=== PATIENT | male | born 1955 | race Caucasian/White ===

== ENCOUNTER 2019-03-21 12:18 | Inpatient (IN) | payer OTHER ==
[~2019-03-21] VITALS: Ht 190.5 cm; Wt 132.9 kg
[~2019-03-21 12:18] MED LIST: ARTICHOKE PO; ASPIR 8181 MG PO; ASPIRIN81 M2 PO; CENTRUM SILVER1 EAC2 PO; FUROSEMIDE 20 M20 MG PO; HYDROXYZINE HCL25 M2 PO; IBUPROFEN 200200 M1 PO; LISINOPRIL20 MG PO; LISINOPRIL40 MG PO; MOBIC15 MG PO; NORCO 5-325 TA1 EACH PO; OMEPRAZOLE 20 M20 MG PO; OMEPRAZOLE40 MG PO; POTASSIUM20; PRIMROSE PO; TORADOL 10 MG T10 MG PO; ULTRAM 50MG TAB50 MG PO; UNICOMPLEX M TA1 TA1 PO; [UNRECOGNIZED DRUG - OTHER] PO
[2019-03-21] MEDS ORDERED: NORVASC5 MG PO (12:39)
[2019-03-21] MEDS ORDERED: PROZAC10 MG PO (12:40)
[2019-03-21] MEDS ORDERED: PAXIL10 MG PO (12:40)
[2019-03-21 13:15] LABS: HEMOGLOBIN 14.7 gm/dL (14.0-18.0); MCHC 33.1 g/dL (28.0-37.0)
[2019-03-21 13:17] LABS: HEMATOCRIT 44.5 % (42.0-52.0); MCH 28.7 pg (26.0-34.0); MCV 86.6 fL (80.0-100.0); MPV 8.6 fl. (7.2-11.1); NUCLEATED RBCS 0 /100WBC; PLATELET COUNT* 248 thou/uL (150-400); RBC 5.14 mil/uL (4.50-6.00); RDW-CV 13.7 % (10.5-14.5); WBC 11.4 thou/uL (4.0-11.0)
[2019-03-21 13:25] LABS: ANION GAP 9 mmol/L (7-16); APTT 25.4 Seconds (25.0-31.3); BUN 13 mg/dL (7-18); CALCIUM 8.8 mg/dL (8.5-10.1); CHLORIDE 105 mmol/L (98-107); CO2 27 mmol/L (21-32); CREATININE 0.9 mg/dL (0.6-1.3); GLUCOSE 112 mg/dL (70-99); POTASSIUM 3.6 mmol/L (3.5-5.1); PROTIME 10.2 Seconds (9.20-11.50); SODIUM 141 mmol/L (136-145)
[2019-03-21 13:38] LABS: ALKALINE PHOSPHATASE 116 U/L (46-116); NT-PRO BRAIN NAT PEPTIDE 80 pg/mL (<300); SGOT 26 U/L (15-37); SGPT 35 U/L (30-65); TOTAL BILIRUBIN 0.4 mg/dL (<0.1-1.0); TOTAL PROTEIN 7.5 g/dL (6.4-8.2); TROPONIN-I LEVEL <0.06 ng/mL (<0.06)
[2019-03-21 13:59] LABS: ABSOLUTE LYMPHOCYTES 0.6 thou/uL (0.8-5.3); ABSOLUTE MONOCYTES 0.2 thou/uL (0.0-1.2); ABSOLUTE NEUTROPHILS 10.6 thou/uL (1.6-8.1); PLATELET ESTIMATE ADEQUATE
--- NOTE | 2019-03-21 15:04 | EKG ---
[place] [address] ELECTROCARDIOGRAM REPORT Name: LUCY CARDONA Room: [place] [address] ADM IN .R.#: [id number] Admission: 03/21/19 Attend Phys: Valdemar Santa MD Discharge: Date of : 53 Report #: [id number] THIS REPORT FOR: //name// [facility] ED Test Date: 2019-03-21 Test Time: 12:39:34 Pat Name: LUCY CARDONA Department: Room: [facility] Gender: M [employer]: : 1955 Requested By: Sea Alston Order Number: [id number] MD: Garth Hawthorne Measurements Intervals [place] Rate: 64 P: 17 [place]: 62 QRS: 3 QRSD: 111 T: 0 QT: 419 QTc: 433 Interpretive Statements Sinus rhythm Low voltage, precordial leads Compared to ECG 04/25/2017 15:12:28 No significant change Electronically Signed On 03-21-2019 15:04:20 CDT by Grath Hawthorne [email or web address] <ELECTRONICALLY SIGNED> By: Garth Hawthorne MD, [facility] 03/21/19 1504 1239 1239 Garth Hawthorne MD, [facility] /EPI
[2019-03-21 15:36] VITALS: BP 140/80
[2019-03-21 17:00] VITALS: BP 157/78
[2019-03-21 17:01] VITALS: BP 139/72
--- NOTE | 2019-03-21 17:01 | 2DMMODE ---
[place] [address] 2 D/M-MODE ECHOCARDIOGRAM Name: LUCY CARDONA Room: [address] [place] [facility]#: [id number] Admission: 03/21/19 Attend Phys: Valdemar Santa, Discharge: Date of : 53 Date of Service: 03/21/19 1700 Report #: [id number] THIS REPORT FOR: //name// APPROVED REPORT Study performed: 03/21/2019 14:53:42 EXAM: Comprehensive 2D, Doppler, and color-flow Echocardiogram Patient Location: In-Patient Room #: ER Status: routine BSA: 2.15 HR: 64 bpm BP: 140/80 mmHg Rhythm: NSR Other Information Study Quality: Good Indications CVA/TIA Echo Enhancing Agent Indication: Rule out Shunt Agent(s) / Amount(s) Used: Agitated Saline 10 cc 2D Dimensions IVSd: 9.20 (7-11mm) LVOT Diam: 19.74 (18-24mm) LVDd: 52.56 mm PWd: 9.44 (7-11mm) Ascending Ao: 36.82 (22-36mm) LVDs: 27.41 (25-40mm) Aortic Root: 34.80 mm Volumes Left Atrial Volume (Systole) LA ESV Index: 36.50 mL/m2 Aortic Valve AoV Peak Noah.: 1.42 m/s AO Peak Gr.: 8.11 mmHg LVOT Max P.80 mmHg AO Mean Gr.: 4.38 mmHg LVOT Mean P.27 mmHg LVOT Max V: 1.10 m/s AO V2 VTI: 33.79 cm LVOT Mean V: 0.69 m/s NOMI (VTI): 2.42 cm2 LVOT V1 VTI: 26.74 [place] [address] 2 D/M-MODE ECHOCARDIOGRAM Name: LUCY CARDONA Room: [address] IN ..#: [id number] Admission: 03/21/19 Attend Phys: Valdemar Santa, Discharge: Date of : 53 Date of Service: 03/21/19 1700 Report #: [id number] Mitral Valve E/A Ratio: 1.14 MV Decel. Time: 227.70 ms MV E Max Noah.: 0.79 m/s MV PHT: 66.03 ms MVA (PHT): 3.33 cm2 TDI E/Lateral E': 4.39 E/Medial E': 5.64 Medial E' Noah.: 0.14 m/s Lateral E' Noah.: 0.18 m/s Pulmonary Valve PV Peak Noah.: 1.07 m/s PV Peak Gr.: 4.57 mmHg Tricuspid Valve RAP Estimate: 5.00 mmHg TR Peak Gr.: 27.11 mmHg RVSP: 32.00 mmHg PA Pressure: 32.00 mmHg Left Ventricle The left ventricle is normal size. There is normal LV segmental wall motion. There is normal left ventricular wall thickness. Left ventricular systolic function is normal. LVEF is >70%. Transmitral Doppler flow pattern suggests impaired LV relaxation. Right Ventricle Right ventricle is mildly dilated. The right ventricular systolic function is normal. Atria Left atrium is moderately dilated. Interatrial septum is intact without evidence of ASD or PFO. Right atrium is moderately dilated. Aortic Valve The aortic valve is normal in structure. No aortic regurgitation is present. There is no aortic valvular stenosis. Mitral Valve The mitral valve is normal in structure. Trace mitral regurgitation. No evidence of mitral valve stenosis. Tricuspid Valve The tricuspid valve is normal in structure. Trace tricuspid regurgitation. [place] [address] 2 D/M-MODE ECHOCARDIOGRAM Name: LUCY CARDONA Room: [address] [place] ..#: [id number] Admission: 03/21/19 Attend Phys: Valdemar Santa, Discharge: Date of : 53 Date of Service: 03/21/19 1700 Report #: [id number] Pulmonic Valve The pulmonary valve is normal in structure. There is no pulmonic valvular regurgitation. Great Vessels The aortic root is normal in size. IVC is not well visualized. Pericardium There is no pericardial effusion. <Conclusion> The left ventricle is normal size. There is normal left ventricular wall thickness. Left ventricular systolic function is normal. LVEF is >70%. Transmitral Doppler flow pattern suggests impaired LV relaxation. Interatrial septum is intact without evidence of ASD or PFO. Right ventricle is mildly dilated. Left atrium is moderately dilated. Right atrium is moderately dilated. Trace mitral regurgitation. Trace tricuspid regurgitation. Mild pulmonary hypertension. <ELECTRONICALLY SIGNED> By: Patel Moon MD, FACC 03/21/191699 99 99 Patel Moon MD, FACC /INF
[2019-03-21 17:02] VITALS: BP 110/73
[2019-03-21 17:40] LABS: URINE BILIRUBIN NEGATIVE (Negative); URINE BLOOD 2+ (Negative); URINE CLARITY CLEAR; URINE COLOR YELLOW; URINE GLUCOSE-RANDOM NEGATIVE (Negative); URINE KETONES NEGATIVE (Negative); URINE LEUKOCYTES-REFLEX NEGATIVE (Negative); URINE NITRITE-REFLEX NEGATIVE (Negative); URINE PROTEIN 1+ (Negative)
[2019-03-21 18:03] LABS: BACTERIA-REFLEX 1-9 Few /HPF (None Seen); CASTS None Seen /LPF (None Seen); CRYSTALS None Seen /LPF (None Seen); SQUAMOUS 0-3 Few /LPF (0-3); URINE RBC 3-10 Few /HPF (0-2); URINE WBC-REFLEX 0-5 Rare /HPF (0-5)
[2019-03-21 19:20] VITALS: BP 133/73
[2019-03-22] VITALS: BP 97/47
[2019-03-22 02:10] LABS: GLYCOHEMOGLOBIN (HGB A1C) 5.4 % (4.8-5.6)
[2019-03-22 04:00] VITALS: BP 174/103
[2019-03-22 07:50] LABS: CHOLESTEROL 97 mg/dL (<200); HDL CHOLESTEROL 30 mg/dL (>40); LDL CHOLESTEROL 49 mg/dL (<100); TC:HDL 3.2 Ratio (Not establshd); TRIGLYCERIDE 92 mg/dL (<150); VLDL 18 mg/dL (<40)
[2019-03-22 07:58] LABS: SERUM ASSESSMENT Clear
[2019-03-22 08:06] VITALS: BP 149/72
[2019-03-22 11:43] VITALS: BP 127/65
[2019-03-22 15:50] VITALS: BP 140/76
[2019-03-22 19:49] VITALS: BP 163/73
[2019-03-23] VITALS: BP 157/82
[2019-03-23 04:00] VITALS: BP 146/78
[2019-03-23 08:09] VITALS: BP 147/80
[2019-03-23] MEDS ORDERED: ANTIVERT25 MG PO (09:58)
[2019-03-23 10:03] VITALS: BP 147/80
== END 2019-03-23 11:05 | disposition home or self-care (01) | DRG 149 ==
LOC: M.ERS 12:18 → M.2W 14:00 → M.TBA-ER 14:00 → M.2W 15:50
PROVIDERS: Family Medicine; ADMIT Internal Medicine
DX: R42 Dizziness and giddiness (principal); I10 Essential (primary) hypertension; K21.9 Gastro-esophageal reflux disease without esophagitis; K22.70 Barrett's esophagus without dysplasia; M19.90 Unspecified osteoarthritis, unspecified site; Z90.49 Acquired absence of other specified parts of digestive tract; Z79.899 Other long term (current) drug therapy; Z88.2 Allergy status to sulfonamides; Z88.8 Allergy status to other drugs, medicaments and biological substances